=== PATIENT | male | born 1985 | race Caucasian/White ===

== ENCOUNTER 2020-03-29 01:01 | Emergency (ER) | payer SELFPAY ==
[~2020-03-29] VITALS: Ht 193 cm; Wt 150.0 kg
[2020-03-29] MEDS ORDERED: LOTRISONE CREAM15 G1 EX (02:11)
[2020-03-29 02:41] VITALS: BP 180/86
== END 2020-03-29 02:41 | disposition home or self-care (01) | DRG 728 ==
LOC: ED 01:01
DX: N48.1 Balanitis (principal); B35.6 Tinea cruris; I10 Essential (primary) hypertension

== ENCOUNTER 2021-07-23 21:17 | Emergency (ER) | payer SELFPAY ==
[~2021-07-23] VITALS: Ht 193 cm; Wt 153.0 kg
[~2021-07-23 21:17] MED LIST: LOTRISONE CREAM15 G1 EX
[2021-07-23] MEDS ORDERED: MEDICAL MARIJUANA (22:29)
[2021-07-23] MEDS ORDERED: CORTISPORIN OTI10 M2 AS (22:32)
[2021-07-23 22:41] VITALS: BP 192/96
== END 2021-07-23 22:44 | disposition home or self-care (01) | DRG 156 ==
LOC: ED 21:17
PROC: 09C47ZZ Extirpation of Matter from Left External Auditory Canal, Via Natural or Artificial Opening (ICD-10-PCS; principal; 2021-07-23)
DX: T16.2XXA Foreign body in left ear, initial encounter (principal); I10 Essential (primary) hypertension; F41.9 Anxiety disorder, unspecified; F31.9 Bipolar disorder, unspecified; X58.XXXA Exposure to other specified factors, initial encounter

== ENCOUNTER 2023-03-05 09:51 | Emergency (ER) | payer BC ==
[~2023-03-05] VITALS: Ht 193 cm; Wt 190.0 kg
[~2023-03-05 09:51] MED LIST changes: +CORTISPORIN OTI10 M2 AS; +MEDICAL MARIJUANA
[2023-03-05 10:00] VITALS: BP 213/128
[2023-03-05 10:41] VITALS: BP 213/128
== END 2023-03-05 10:52 | disposition home or self-care (01) | DRG 156 ==
LOC: ED 09:51
PROC: 09C3XZZ Extirpation of Matter from Right External Auditory Canal, External Approach (ICD-10-PCS; principal; 2023-03-05)
DX: T16.1XXA Foreign body in right ear, initial encounter (principal); I10 Essential (primary) hypertension; F41.9 Anxiety disorder, unspecified; F31.9 Bipolar disorder, unspecified; X58.XXXA Exposure to other specified factors, initial encounter